=== PATIENT | male | born 1980 | race Caucasian/White ===

== ENCOUNTER → 2017-11-13 | Outpatient (CLI) | payer BC ==
--- NOTE | 2017-11-13 08:02 | MR ---
EXAMINATION TYPE: MR knee RT wo con DATE OF EXAM: 11/13/2017 COMPARISON: Outside right knee x-ray October 31, 2017 HISTORY: Right knee pain per order. Inner knee pain for 3 months per patient. TECHNIQUE: Multiplanar, multisequence images of the knee is performed without IV contrast. FINDINGS: MEDIAL MENISCUS: Anterior horn is intact without tear. Triangular shaped increased signal posterior h orn of medial meniscus does not definitively extend to articular surface. LATERAL MENISCUS: Anterior and posterior horns are intact without tear. CRUCIATE LIGAMENTS: The anterior and posterior cruciate ligaments are intact and unremarkable. COLLATERAL LIGAMENTS: The medial collateral ligament and lateral collateral ligament complex are inta ct and unremarkable. EXTENSOR MECHANISM: Visualized quadriceps and patellar tendons are intact. EFFUSION: No significant suprapatellar joint effusion. POPLITEAL CYST: No popliteal/benites cyst. TRICOMPARTMENT SPACES: Tricompartment joint spaces are fairly well-maintained. There is mild to minim al tibial condylar spurring CARTILAGE: Tricompartment articular cartilage is preserved. There is no significant chondromalacia pa tella. BONE MARROW SIGNAL: No focal abnormal marrow signal is appreciated. OTHER: Susceptibility artifact noted anterior subcutaneous tissue level of lateral tibial plateau cou ld reflect subcutaneous foreign body, correlate clinically. No radiodense foreign body identified at this level on corresponding plain films. IMPRESSION: 1. Intrasubstance tear posterior horn of medial meniscus. No full-thickness meniscal or ligamentous t ear clearly identified. 2. Possible soft tissue foreign body anterior tissue at the level of lateral tibial plateau. Correlat e clinically.
== END | disposition home or self-care (01) ==
LOC: RADMRIMAIN 07:04
PROVIDERS: ATTEND Orthopaedic Surgery
DX: S83.241A Other tear of medial meniscus, current injury, right knee, initial encounter (principal)

== ENCOUNTER → 2017-12-23 | Outpatient (CLI) | payer BC ==
[2017-12-23 09:43] LABS: Basophils % (A) 1 %; Eosinophils # (A) 0.1 k/uL (0-0.7); Eosinophils % (A) 1 %; HCT 50.3 % (39.0-53.0); HGB 16.8 gm/dL (13.0-17.5); Lymphocytes # (A) 1.9 k/uL (1.0-4.8); Lymphocytes % (A) 36 %; MCHC 33.4 g/dL (31.0-37.0); MCV 86.9 fL (80.0-100.0); Mean Platelet Volume 6.5; Monocytes # (A) 0.3 k/uL (0-1.0); Monocytes % (A) 5 %; Neutrophils # (A) 2.9 k/uL (1.3-7.7); Neutrophils % (A) 55 %; Platelet Count 271 k/uL (150-450); RBC 5.79 m/uL (4.30-5.90); WBC 5.3 k/uL (3.8-10.6)
== END | disposition home or self-care (01) ==
LOC: LABPAT 09:26
PROVIDERS: ATTEND Orthopaedic Surgery
DX: Z01.812 Encounter for preprocedural laboratory examination (principal); M23.91 Unspecified internal derangement of right knee
CPT/HCPCS: 36415; 80051; 85025

== ENCOUNTER 2017-12-28 06:01 | Day surgery (SDC) | payer BC ==
[2017-12-25 15:43] VITALS: BMI 27.8
--- NOTE | 2017-12-27 16:57 | HP ---
HISTORY AND PHYSICAL REASON FOR ADMISSION: Surgery 12/28/2017. HISTORY OF PRESENT ILLNESS: Paxton Bryant is a 37-year-old patient seen with progressive right knee pain. We discussed treatment options. He elected to proceed with right knee arthroscopy. Consent regarding procedure was obtained. PAST MEDICAL HISTORY: Noncontributory. PAST SURGICAL HISTORY: Noncontributory. DAILY MEDICATIONS: None reported. SOCIAL HISTORY: Patient denies current tobacco use. PHYSICAL EXAMINATION: Evaluation of the right knee is range of motion 0 to 130 degrees. He has a mild effusion. He is tender along the medial joint line with a positive medial Gladys's. His ligaments are stable. Hip rotation is without pain. Distal neurovascular exam is intact. RADIOGRAPHS: Radiographs of the right knee revealed mild medial compartment osteoarthritis. An MRI of the right knee revealed medial meniscal tear. IMPRESSION: Internal derangement, right knee with medial meniscal tear. PLAN: Right knee arthroscopy with partial meniscectomy and debridement. Surgery is 12/28/2017. MMODL / IJN: [id number] /
[~2017-12-28 06:01] MED LIST: DEXAMETHASONE SOD PHOSPHATE 10 MG/ML 1 ML VIAL IV ONE; LACTATED RINGERS 1,000 ML IV SCH; LIDOCAINE 1% 20 ML VIAL (10MG/ML) FOR IV START INTRADERMA PRN; ONDANSETRON 4 MG/2 ML VIAL IVP ONE; SCOPOLAMINE 1.5MG/72HR PATCH TRANSDERM ONE; ceFAZolin IN SWFI 2 GM/20 ML SYRINGE IVP ONE; fentaNYL (PF) 50 MCG/ML 2 ML AMP IV PRN
[2017-12-28] MEDS ORDERED: LIDOCAINE 1% INJ 10MG/ML (20 ML MDV) ONE (07:29)
[2017-12-28] MEDS ORDERED: MIDAZOLAM 2 MG/2 ML VIAL ONE (07:29)
[2017-12-28] MEDS ORDERED: KETOROLAC 30 MG/ML 1 ML VIAL ONE (07:29)
[2017-12-28] MEDS ORDERED: PROPOFOL 10 MG/ML 20 ML VIAL IV ONE (07:29)
[2017-12-28] MEDS ORDERED: fentaNYL (PF) 50 MCG/ML 2 ML AMP ONE (07:29)
[2017-12-28] MEDS ORDERED: BUPIVACAINE (PF) 0.25% 30 ML VIAL INTRAARTIC ONE (07:49)
--- NOTE | 2017-12-28 08:25 | P.OP ---
Date of Procedure: 12/28/17 Preoperative Diagnosis: Internal derangement right knee Postoperative Diagnosis: 1. Tear medial and lateral meniscus right knee 2. Reactive synovitis medial and suprapatellar compartments right knee Procedure(s) Performed: 1. Arthroscopic partial medial and lateral meniscectomy right knee 2. Arthroscopic partial synovectomy medial and suprapatellar compartments right knee Implants: none Anesthesia: GETA, local Surgeon: Pj Antunez Estimated Blood Loss (ml): 5 Pathology: none sent Condition: stable Disposition: PACU Indications for Procedure: 37-year-old patient seen with progressive right knee pain. After treatment options were discussed, he elected to proceed with arthroscopy. Operative Findings: See description of procedure Description of Procedure: Patient was taken to the operative suite. Patient underwent a general anesthetic by the department of anesthesia. Patient was given preoperative antibiotics. The right lower extremity was placed in a well-padded arthroscopic leg park. The right leg was prepped and draped in the normal sterile orthopedic fashion. A lateral parapatellar and suprapatellar incision was made. Trochars were inserted. Arthroscopy was initiated. Suprapatellar pouch revealed diffuse thick reactive synovitis. The patellofemoral joint appeared to articulate congruently. There was grade 1 chondromalacia involving the femoral sulcus with no osteochondral tears present. The scope was guided into the medial gutter. No loose bodies or plica were identified. The scope was then guided into the medial compartment. A medial parapatellar incision was made. Trocar inserted followed by probe. There was a radial tear posterior horn medial meniscus. There was thick reactive synovitis anteriorly involving the medial compartment. There were mild grade 1 chondromalacia changes but no osteochondral tears. I performed a partial medial meniscectomy down to stable tissue. I performed a partial synovectomy. The residual meniscus was probed and found to be stable. There was good decompression of that reactive synovitis. Scope and probe were then guided into the intercondylar notch. Cruciates were identified, probed and found to be stable. The scope and probe were then guided into lateral compartment. There was a small radial tear mid body lateral meniscus. There was no chondromalacia or reactive synovitis. I performed a partial lateral meniscectomy down to stable tissue. The residual meniscus was stable. The scope was in guided back into the suprapatellar compartment. I introduced a motorized shaver into the suprapatellar compartment. I debrided some piecemeal fragments of meniscus I encountered. I performed a partial synovectomy. Shaver was removed. I took one more look on the entire knee, no residual debris. Instruments were now removed from the joint. The joint was infiltrated with .25% Marcaine. Steri- Strips were applied to the portal sites. Sterile dressings were applied. The patient was placed into a HAROLDO hose. No tourniquet was utilized. The patient was awakened, transferred to a bed and taken to recovery stable satisfactory condition.
[2017-12-28 08:26] VITALS: TEMP 97.5
[2017-12-28] MEDS: MEPERIDINE 50 MG/ML SYRINGE IVP ONE ×2 (08:43→08:55)
[2017-12-28] MEDS ORDERED: LACTATED RINGERS 1,000 ML IV ONE ×2 (08:48)
[2017-12-28] MEDS ORDERED: HYDROcodone/APAP 5-325MG 1 EACH TAB PO ONE (09:30)
[2017-12-28 09:59] VITALS: RESP 16
[2017-12-28 10:02] VITALS: BP 141/82; PULSE 74
== END 2017-12-28 10:17 | disposition home or self-care (01) ==
LOC: OR 06:01
PROVIDERS: ATTEND Orthopaedic Surgery
DX: M23.321 Other meniscus derangements, posterior horn of medial meniscus, right knee (principal); M23.300 Other meniscus derangements, unspecified lateral meniscus, right knee; M65.861 Other synovitis and tenosynovitis, right lower leg; M94.261 Chondromalacia, right knee
CPT/HCPCS: 29880; J2250; J1100; J2175; J2405; J2001; J3010; J1885; J2704; J0690